=== PATIENT | male | born 1990 | race Caucasian/White ===

== ENCOUNTER 2025-07-08 23:17 | Emergency (ER) | payer SELFPAY ==
[~2025-07-08] VITALS: Ht 167.6 cm; Wt 66.0 kg
[2025-07-08 23:19] VITALS: O2SAT 99
[2025-07-09] MEDS: TETANUS, DIPHTHERIA, PERTUSSIS VAC/PF 0.5ML (>10YR OLD) IM ONE (00:53)
[2025-07-09] MEDS: LIDOCAINE HCL 1% 20ML VIAL INFIL ONE (01:11)
[2025-07-09] MEDS ORDERED: NAPR-1176 MT (01:27)
[2025-07-09] MEDS ORDERED: CEPH500C2 MT (01:27)
[2025-07-09 01:53] VITALS: BP 122/75; PULSE 63; RESP 16; TEMP 36.6; O2SAT 100
== END 2025-07-09 02:04 | disposition home or self-care (01) ==
LOC: ER 23:17
DX: S61.012A Laceration without foreign body of left thumb without damage to nail, initial encounter (principal); S01.412A Laceration without foreign body of left cheek and temporomandibular area, initial encounter; Z79.1 Long term (current) use of non-steroidal anti-inflammatories (NSAID); Y04.0XXA Assault by unarmed brawl or fight, initial encounter; Y93.89 Activity, other specified; Y92.89 Other specified places as the place of occurrence of the external cause; Y99.8 Other external cause status
CPT/HCPCS: 99284; 12002; 12011; 70450; 70486; J2003